=== PATIENT | male | born 1995 | race African-American/Black ===

== ENCOUNTER 2016-11-27 18:38 | Emergency (ER) | payer SELFPAY ==
[2016-11-27 18:53] VITALS: BP 118/89
[2016-11-27] MEDS ORDERED: Diphtheria,Pertussis(Acell),Tetanus Vaccine 0.5 ML SDV inactive IM ONE (19:26)
[2016-11-27] MEDS ORDERED: Lidocaine 1% 50 ML MDV INJECT ONE (19:26)
--- NOTE | 2016-11-27 19:36 | EDM.PDOC ---
ED HPI GENERAL MEDICAL PROBLEM - General Chief Complaint: Laceration Stated Complaint: CUT FOREHEAD ON A DOOR Time Seen by Provider: 11/27/16 19:26 Source of Information: Reports: Patient History Limitations: Reports: No Limitations - History of Present Illness INITIAL COMMENTS - FREE TEXT/NARRATIVE: 21-year-old male presents for evaluation treatment of a laceration to the right forehead. Injury occurred prior to arrival in the ER. Patient reports he ran into the door of his house when he was going into it. He states he did not lose consciousness. He reports a laceration to the right forehead. No headaches, nausea, vomiting, vision changes, lightheadedness or dizziness. Patient does not know his last tetanus. Right Anterior Head Pain Score (Numeric/FACES): 6 - Related Data Allergies Allergy/AdvReac Type Severity Reaction Status Date / Time No Known Allergies Allergy Verified 11/27/16 18:48 Home Meds: Home Meds . [No Known Home Meds] 11/27/16 [History] Past Medical History - Past Health History Medical/Surgical History: Denies Medical/Surgical History Social & Family History - Family History Family Medical History: Noncontributory - Tobacco Use Smoking Status *Q: Current Every Day Smoker Years of Tobacco use: 2 Packs/Tins Daily: 0.3 Second Hand Smoke Exposure: No - Caffeine Use Caffeine Use: Reports: Coffee - Recreational Drug Use Recreational Drug Use: No ED ROS GENERAL - Review of Systems Review Of Systems: See Below HEENT: Denies: Vision Change GI/Abdominal: Denies: Nausea, Vomiting Skin: Reports: Wound (forehead) Neurological: Denies: Headache, Syncope ED EXAM, SKIN/RASH Exam: See Below Exam Limited By: No Limitations General Appearance: Alert, WD/WN, No Apparent Distress Respiratory/Chest: No Respiratory Distress Neurological: Alert, Oriented, Normal Cognition Psychiatric: Normal Affect, Normal Mood Skin: Warm, Dry, Wound/Incision (2cm laceration to the right ) ED SKIN PROCEDURES - Laceration/Wound Repair Right Forehead Lac/wound length in cm: 2 Appearance: Subcutaneous Distal NVT: neuro & vascular intact, no tendon injury Anesthetic Type: local Local anesthesia - Lidocaine (Xylocaine): 1% plain Skin prep: saline, sterile drape, other (surclens) Closed with: sutures Suture size: other (6-0) # of sutures: 7 Suture type: nylon, interrupted, simple Sterile dressing applied: nurse Tetanus status addressed: Yes (patient declined) Complications: No Course - Vital Signs Last Recorded V/S: Last Vital Signs Temp 36.5 C 11/27/16 18:49 Pulse 92 11/27/16 18:49 Resp 16 11/27/16 18:49 BP 118/89 11/27/16 18:49 Pulse Ox 97 11/27/16 18:49 - Orders/Labs/Meds Orders: Active Orders 24 hr Category Date Time Status Vaccines to be Administered [RC] PER UNIT ROUTINE Care 11/27/16 19:26 Ordered Meds: Medications Discontinued Medications Generic Name Dose Route Start Last Admin Trade Name Freq PRN Reason Stop Dose Admin Diphtheria/Tetanus/Acell Pertussis 0.5 ml 11/27/16 19:26 11/27/16 20:21 Boostrix IM 11/27/16 19:27 Not Given .ONCE ONE Lidocaine HCl 50 ml 11/27/16 19:26 11/27/16 19:53 Xylocaine 1% INJECT 11/27/16 19:27 50 ml ONETIME ONE Administration - Re-Assessments/Exams Free Text/Narrative Re-Assessment/Exam: 11/27/16 20:37 7 sutures were placed to the right for head. Patient tolerated procedure well. the patient I discussed tetanus status prior to the suture placement. He did not recall his last tetanus and was agreeable to receiving one today. When nursing staff arrived with the tetanus, he then declined and stated he would do one at a later date. We will discharge him at this time. Discharge instructions as documented Departure - Departure Time of Disposition: 20:23 Disposition: Home, Self-Care 01 Condition: good Clinical Impression: Laceration - Discharge Information Instructions: Laceration Care, Adult, [id number] Referrals: PCP,None [Primary Care Provider] - Anitha Monreal PA-C [Physician Human Relations Professor] - Forms: ED Department Discharge Additional Instructions: Wash the area with gentle soap and water twice a day. Apply antibacterial ointment to the wound twice a day for 3 days. Keep covered when in situations where the wound may become dirty. Followup with the clinic in 5-7 days for suture removal. [place] will remove the sutures for free. They are open Sunday through Sunday 8 AM to 5 PM. Call [phone] to schedule with them. Monitor for signs of infection such as increased swelling, pus or redness. Presents to the clinic or the ER should these develop. [id number] Tylenol and Motrin as needed for pain relief. If you do develop a scar, once these sutures had been removed I recommend over- the-counter murderma lotion. Please return to the ER if your symptoms change or worsen. - My Orders Last 24 Hours: My Active Orders 11/27/16 19:26 Vaccines to be Administered [RC] PER UNIT ROUTINE - Assessment/Plan Last 24 Hours: My Active Orders 11/27/16 19:26 Vaccines to be Administered [RC] PER UNIT ROUTINE
== END 2016-11-27 20:39 | disposition home or self-care (01) ==
LOC: JD.ED 18:38
DX: S01.81XA Laceration without foreign body of other part of head, initial encounter (principal); Z23 Encounter for immunization; W22.09XA Striking against other stationary object, initial encounter; Y92.009 Unspecified place in unspecified non-institutional (private) residence as the place of occurrence of the external cause; F17.210 Nicotine dependence, cigarettes, uncomplicated
CPT/HCPCS: 12011; 90471; 99282-25; 99283-25